=== PATIENT | female | born 1960 | race Caucasian/White ===

== ENCOUNTER 2018-05-30 11:52 | Inpatient (IN) | payer OTHER ==
[~2018-05-30] VITALS: Ht 162.6 cm; Wt 136.1 kg
--- NOTE | ~2018-05-30 | OP ---
[address] [address] OPERATIVE REPORT Name: GENARO LISA Room: [address] IN .#: [id number] Admission: 05/30/18 Attend Phys: Mark Scott MD Discharge: Date of : 60 Report #: [id number] THIS REPORT FOR: //name// CC: [facility] Jeronimo Scott DATE OF SERVICE: 05/30/2018 PREOPERATIVE DIAGNOSES: Right distal ureteral obstructing stone and urinary tract infection, acute kidney injury. POSTOPERATIVE DIAGNOSES: Right distal ureteral obstructing stone and urinary tract infection, acute kidney injury. PROCEDURE: Cystourethroscopy, right retrograde pyelogram and right ureteral stent placement (6-Palauan x 24 cm). SURGEON: Chelsi Chatterjee M.D. ANESTHESIA: General. ESTIMATED BLOOD LOSS: None. COMPLICATIONS: None. SPECIMENS: Urine from right kidney for culture and sensitivity. INDICATION FOR PROCEDURE: The patient is a 58-year-old female who presented with a subjective fever, chills and bilateral flank pain. A CT scan done today revealed a 5-mm right distal obstructing stone as well as some right nonobstructing renal stones. No stone or hydro was found on the left side. Her urinalysis looked suspicious for infection and she had leukocytosis as well as tachycardia. Given her likely infection, it was recommended she undergo urgent stent placement to decompress her right kidney. Her creatinine is also elevated at 2.1. Risks of procedure were discussed including, not limited to infection, bleeding, injury to the urethra, bladder, ureter, need for secondary procedures, stent pain, cardiopulmonary complications. She voiced understanding and wishes to proceed. She also understands she will need a full antibiotic course before we proceed with intervention for her stones. DESCRIPTION OF PROCEDURE: After informed consent was obtained, the patient was taken back to the operating suite and placed supine. After induction of general anesthesia, she was placed in dorsal lithotomy position. Genitalia were prepped and draped in standard fashion. Rigid cystoscopy was performed. She was noted to have a normal urethra and bladder. She did [place] [address] OPERATIVE REPORT Name: GENARO LISA Room: [address] [place] [facility]#: [id number] Admission: 05/30/18 Attend Phys: Mark Scott MD Discharge: Date of : 60 Report #: [id number] her bladder, but this was otherwise unremarkable. Ureteral orifices were orthotopic in position. Retrograde was performed on the right side, which revealed a distal ureteral filling defect with proximal hydroureteronephrosis. This was consistent with the stone. A sensor wire was threaded up into the kidney. The proximal ureter was noted to be mildly tortuous. The 5-Palauan open-ended catheter was used over the wire to thread up into the kidney and wires were removed. A hydronephrotic drip was noted. I aspirated some urine back and this looked just slightly cloudy, but not frankly purulent. However, when the wire was replaced and the 5-Palauan open-ended catheter was removed, a lot of purulent-appearing material effluxed from the right UO. Therefore, a 6-Palauan x 24 cm double-J stent was threaded over the wire. Good curl was seen within the renal pelvis and good curl was seen within the bladder under direct visualization. The bladder was then drained and the scope was removed, procedure was concluded. She was awoken, extubated and taken to recovery. Prior to leaving the OR table, I placed 5 mL of lidocaine jelly per urethra for local anesthesia. She was taken to recovery in satisfactory condition and will be admitted to the floor on antibiotics. Plan will be to await her cultures. Continue antibiotic therapy for a full course and then, she will require ureteroscopy in the future when she has cleared her infection. We will continue to monitor her creatinine levels as well. By: 1704 1717Chelsi Chatterjee MD /jose c
[2018-05-30 11:59] VITALS: BP 167/87
[2018-05-30] MEDS ORDERED: DOXYCYCLINE HYC50 MG PO (12:12)
[2018-05-30] MEDS ORDERED: [UNRECOGNIZED DRUG - OTHER] TOP (12:15)
[2018-05-30] MEDS ORDERED: NUVESSA5 GM VAG (12:17)
[2018-05-30] MEDS ORDERED: NYAMYC15 GM TOP (12:17)
[2018-05-30] MEDS ORDERED: MUPIROCIN1 GM TOP (12:18)
[2018-05-30] MEDS ORDERED: POTASSIUM CIT2500 GM PO (12:19)
[2018-05-30] MEDS ORDERED: NEURONTIN 300300 M1 PO (12:19)
[2018-05-30] MEDS ORDERED: LOPRESSOR50 PO (12:21)
[2018-05-30 12:28] LABS: HEMATOCRIT 34.4 % (37.0-47.0); HEMOGLOBIN 11.1 gm/dL (12.0-15.0); MCH 27.5 pg (26.0-34.0); MCHC 32.3 g/dL (28.0-37.0); MCV 85.2 fL (80.0-100.0); MPV 8.2 fl. (7.2-11.1); NUCLEATED RBCS 0 /100WBC; PLATELET COUNT* 232 thou/uL (150-400); RBC 4.04 mil/uL (4.20-5.00); RDW-CV 16.9 % (10.5-14.5); WBC 13.1 thou/uL (4.0-11.0)
[2018-05-30 12:46] LABS: ALBUMIN 2.6 g/dL (3.4-5.0); ALKALINE PHOSPHATASE 72 U/L (46-116); ANION GAP 10 mmol/L (7-16); BUN 29 mg/dL (7-18); CHLORIDE 102 mmol/L (98-107); CO2 26 mmol/L (21-32); CREATININE 2.1 mg/dL (0.6-1.3); GLUCOSE 225 mg/dL (70-99); LIPASE 88 U/L (73-393); POTASSIUM 4.2 mmol/L (3.5-5.1); SGOT 20 U/L (15-37); SGPT 20 U/L (30-65); SODIUM 138 mmol/L (136-145); TOTAL BILIRUBIN 0.5 mg/dL (<0.1-1.0); TOTAL PROTEIN 7.2 g/dL (6.4-8.2); TROPONIN-I LEVEL <0.06 ng/mL (<0.06)
[2018-05-30 12:58] LABS: ABSOLUTE BASOPHILS 0.1 thou/uL (0.0-0.2); ABSOLUTE LYMPHOCYTES 0.5 thou/uL (0.8-5.3); ABSOLUTE MONOCYTES 0.3 thou/uL (0.0-1.2); ABSOLUTE NEUTROPHILS 12.2 thou/uL (1.6-8.1)
[2018-05-30 12:59] LABS: HYPOCHROMASIA 1+; MICROCYTES 1+; PLATELET ESTIMATE ADEQUATE
[2018-05-30] MEDS ORDERED: LEVEMIR SUBQ (13:00)
[2018-05-30] MEDS ORDERED: ZOLOFT50 MG PO (13:00)
[2018-05-30] MEDS ORDERED: OMEPRAZOLE40 MG PO (13:00)
[2018-05-30] MEDS ORDERED: BD ULTRA-FINE1 EAC2 SUBQ (13:01)
[2018-05-30] MEDS ORDERED: OSTERA TABLET1 EAC1 PO (13:02)
[2018-05-30] MEDS ORDERED: ASPIR 8181 MG PO (13:02)
[2018-05-30] MEDS ORDERED: ZETIA10 MG PO (13:02)
--- NOTE | 2018-05-30 13:37 | EKG ---
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 : 1960 Requested By: Yennifer Leo Order Number: [id number] MD: Wesyl Fulton Measurements Intervals [place] Rate: 127 P: 54 AR: 144 QRS: -14 QRSD: 73 T: 56 QT: 281 QTc: 409 Interpretive Statements Sinus tachycardia Consider anterior infarct Minimal ST depression, lateral leads No previous ECG available for comparison Electronically Signed On 05-30-2018 13:37:35 CDT by Wesly Fulton [email or web address] <ELECTRONICALLY SIGNED> By: Wesly Fulton MD, [facility] 05/30/18 1337 1302 1302 Wesly Fulton MD, FAC /EPI
[2018-05-30 13:59] LABS: URINE BILIRUBIN NEGATIVE (Negative); URINE BLOOD 3+ (Negative); URINE CLARITY CLEAR; URINE COLOR YELLOW; URINE GLUCOSE-RANDOM NEGATIVE (Negative); URINE KETONES NEGATIVE (Negative); URINE LEUKOCYTES-REFLEX 2+ (Negative); URINE NITRITE-REFLEX NEGATIVE (Negative); URINE PROTEIN 2+ (Negative); URINE SPECIFIC GRAVITY 1.015 (1.005-1.030); URINE UROBILINOGEN 0.2 E.U./dl (0.2-1.0)
[2018-05-30 14:07] LABS: SQUAMOUS 4-10 Moderate /LPF (0-3)
[2018-05-30 14:08] LABS: URINE RBC >20 Many /HPF (0-2); URINE WBC-REFLEX >25 Many /HPF (0-5)
[2018-05-30 14:09] LABS: CASTS None Seen /LPF (None Seen); CRYSTALS None Seen /LPF (None Seen); MUCUS None Seen strn/LPF (None Seen)
[2018-05-30 14:39] VITALS: BP 139/68
[2018-05-30 15:30] VITALS: BP 100/50
--- NOTE | 2018-05-30 17:13 | NUR ---
PATIENT ADMITTED AT 1530 FROM ER. UP TO CHAIR WHILE ADMISSION HISTORY BEING DONE. IVF WIDE OPEN FOR SEPSIS, SCHED ABX INFUSING. NO COMPLAINTS OF PAIN. UROLOGY CONSULTED AND WILL TAKE PATIENT TO OR THIS SHIFT. PATIENT DOWN AT 1600 TO OR. WOUND PHOTO TAKEN OF LEFT ARMPIT. VITALS CHARTED. ORIENTED TO CALL LIGHT.
[2018-05-30 18:05] VITALS: BP 104/62
--- NOTE | 2018-05-30 19:31 | NUR ---
PATIENT RETURNED TO FLOOR FROM STENT PLACEMENT. PATIENT DENIES ANY PAIN. PATIENT TOLERATING CLEAR LIQUIDS. PATIENT UP TO VOID PER COMMODE. PATIENT HAS BLOOD TINGED URINE, NO STONE RETRIEVED. PATIENT DENIES ANY NEEDS AT THIS TIME. CALL LIGHT WITHIN REACH. WILL CONTINUE TO MONITOR.
[2018-05-30 20:40] VITALS: BP 107/60
[2018-05-31 00:15] VITALS: BP 116/59
[2018-05-31 03:24] VITALS: BP 132/54
[2018-05-31 03:56] LABS: ABSOLUTE BASOPHILS 0.2 thou/uL (0.0-0.2); ABSOLUTE LYMPHOCYTES 1.3 thou/uL (0.8-5.3); ABSOLUTE MONOCYTES 1.4 thou/uL (0.0-1.2); ABSOLUTE NEUTROPHILS 13.3 thou/uL (1.6-8.1); BASOPHILS 1.1 %; EOSINOPHILS 0.2 %; HEMATOCRIT 31.6 % (37.0-47.0); HEMOGLOBIN 9.9 gm/dL (12.0-15.0); MCH 27.5 pg (26.0-34.0); MCHC 31.3 g/dL (28.0-37.0); MCV 87.9 fL (80.0-100.0); MONOCYTES 8.4 %; MPV 8.4 fl. (7.2-11.1); NUCLEATED RBCS 0 /100WBC; PLATELET COUNT* 219 thou/uL (150-400); POLYS 82.3 %; RBC 3.59 mil/uL (4.20-5.00); RDW-CV 17.5 % (10.5-14.5); WBC 16.2 thou/uL (4.0-11.0)
[2018-05-31 04:11] LABS: CALCIUM 8.4 mg/dL (8.5-10.1); CREATININE 2.1 mg/dL (0.6-1.3); POTASSIUM 4.5 mmol/L (3.5-5.1)
--- NOTE | 2018-05-31 05:56 | NUR ---
PT SLEPT MOST OF SHIFT. ASSESSMENT DOCUMENTED. MEDS GIVEN PER E-MAR. IV PATENT, FLUIDS INFUSING. NORCO GIVEN 1X FOR BACK PAIN WITH RELIEF. CAPNO INPLACE. URINE STRAINED THIS SHIFT. NO REPORTS OF NAUSEA THIS SHIFT. WILL CONTINUE WITH PLAN OF CARE.
[2018-05-31 08:00] VITALS: BP 126/54
[2018-05-31 12:00] VITALS: BP 155/72
--- NOTE | 2018-05-31 15:48 | NUR ---
SW met with pt to complete initial assessment, introduce self, and SW role. Pt alert, oriented. Pt lives at home with her in a duplex that is all one level. Pt has a quad cane. Pt concerned with whether or not she will need oxygen at night at dc. SW discussed this with pt, pt nurse and Dr Scott about whether or not there would be a need for overnight oximetry prior to pt dc to determine if pt would qualify or not. SW to continue to follow to assist with safe dc planning.
[2018-05-31 16:17] VITALS: BP 155/66
--- NOTE | 2018-05-31 16:25 | NUR ---
SHIFT NOTE - PT OFF CAPNO THIS AM. REMAINS ON O2. FAMILY PRESENT AT BEDSIDE. UP IN CHAIR. UP TO BR WITH STANDBY ASSIST. WILL CONTINUE TO MONITOR.
[2018-05-31 19:40] VITALS: BP 134/69
[2018-06-01] VITALS: BP 172/74
[2018-06-01 02:06] LABS: GLYCOHEMOGLOBIN (HGB A1C) 7.2 % (4.8-5.6)
[2018-06-01 04:00] VITALS: BP 106/54
[2018-06-01 05:04] LABS: ABSOLUTE EOSINOPHILS 0.1 thou/uL (0.0-0.7); ABSOLUTE LYMPHOCYTES 0.9 thou/uL (0.8-5.3); ABSOLUTE NEUTROPHILS 8.4 thou/uL (1.6-8.1); BASOPHILS 0.5 %; EOSINOPHILS 1.2 %; HEMATOCRIT 28.7 % (37.0-47.0); HEMOGLOBIN 9.1 gm/dL (12.0-15.0); MCH 27.6 pg (26.0-34.0); MCHC 31.6 g/dL (28.0-37.0); MCV 87.2 fL (80.0-100.0); MONOCYTES 9.1 %; MPV 8.9 fl. (7.2-11.1); NUCLEATED RBCS 0 /100WBC; PLATELET COUNT* 208 thou/uL (150-400); POLYS 80.2 %; RBC 3.29 mil/uL (4.20-5.00); RDW-CV 17.5 % (10.5-14.5); WBC 10.5 thou/uL (4.0-11.0)
--- NOTE | 2018-06-01 05:21 | NUR ---
PT A&O X4. SAO2 95L ON 2L NC. NEW IV STARTED ON RFA 22G. PT RECEIVED SCHEDULED MEDS, IV ABX INFUSED. PT RECEIVED ZOFRAN @ 2203 FOR NAUSEA FEELING. PT RECEIVED 40 UNITS GLARGINE INSULINE AND 8 UNITS SLIDING SCALE OFR A BLOOD GLUCOSE OF 178. PT COMPLAINED OF JEAN AT MEDS ADMINISTRATION WITH A RATING OF TIME. I ASKED IF PT WOULD TAKE TYLENOL, BUT SHE WANTED TO WAIT FOR HER NIGHT MEDS TO KICK IN BECAUSE SHE THOUGHT IT WOULD HELP. ON REASSESSMENT, RELIEF NOTED PT WAS ASLEEP. URINE STRAINED, NO STONE NOTED. PT UP TO CHAIR THIS EARLY AM, SLEEPING. INFECTIOUS DISEASE. CALL LIGHT WITHIN REACH. PT SLEPT FOR MOST OF SHIFT.
[2018-06-01 05:36] LABS: CALCIUM 7.9 mg/dL (8.5-10.1); CREATININE 1.8 mg/dL (0.6-1.3); POTASSIUM 4.6 mmol/L (3.5-5.1)
--- NOTE | 2018-06-01 06:27 | NUR ---
I HAVE REVIEWED CHARTING COMPLETED BY DARIUSZ GRAYSON RN AND CONCUR WITH HER DOCUMENTATION.
[2018-06-01 08:00] VITALS: BP 140/71
[2018-06-01 16:31] VITALS: BP 121/50
--- NOTE | 2018-06-01 16:55 | NUR ---
SHIFT NOTE - FAMILY AT BEDSIDE FOR MOST OF THIS SHIFT. UP IN CHAIR FOR PART OF SHIFT. URINE STRAINING. WILL CONTINUE TO MONITOR.
--- NOTE | 2018-06-02 05:30 | NUR ---
PATIENT SLEPT WELL DURING THIS SHIFT. PT WITH FLUIDS/ANTIBIOTICS INFUSING PER DR ORDER. PT UP TO BATHROOM WITH STEADY GAIT. PT VOIDS DARK YELLOW URINE. NO STONES RETRIEVED. PT HAD ONE BOWEL MOVEMENT DURING THE NIGHT. PT DENIES PAIN. PT WITH BLOOD SUGAR AT 2100 OF 159; LANTUS 40 UNITS AND LISPRO 8 UNITS GIVEN. PT ON ROOM AIR. FREQUENTLY USED ITEMS AND CALL LIGHT WITHIN REACH. SIDERAILS UPX2. WILL CONTINUE TO MONITOR.
[2018-06-02 08:00] VITALS: BP 146/71
--- NOTE | 2018-06-02 16:34 | NUR ---
SHIFT NOTE - PT UP IN CHAIR FOR PART OF THIS SHIFT. FAMILY AT BEDSIDE FOR PART OF THIS SHIFT. ABLE TO AMBULATE TO BR WITH STANDBY ASSIST. WILL CONTINUE TO MONITOR.
[2018-06-02 16:44] VITALS: BP 137/58
[2018-06-02 16:50] LABS: CALCIUM 8.4 mg/dL (8.5-10.1); CREATININE 1.7 mg/dL (0.6-1.3); POTASSIUM 4.4 mmol/L (3.5-5.1)
--- NOTE | 2018-06-02 17:25 | CON ---
[address] [address] CONSULTATION Name: GENARO LISA Room: [address] IN ..#: [id number] Admission: 05/30/18 Attend Phys: Mark Scott MD Discharge: Date of : 60 Report #: [id number] THIS REPORT FOR: //name// CC: Jeronimo Scott DATE OF SERVICE: 06/01/2018 CONSULTATION: Infectious diseases. HISTORY OF PRESENT ILLNESS: The patient is a 58-year-old white female admitted to [facility] on 05/30/2018 because of another kidney stone. The patient had right-sided flank pain associated with fevers, chills, and malaise. She has a history of kidney stones and was very familiar with these symptoms. Workup demonstrated a 5 mm obstructing stone on the right as well as nonobstructing stones on the left. The patient underwent cystoscopy and placement of an ureteral stent. The urologist noted that there was significant purulence in the ureter when the stone was bypassed. She was started on antibiotic therapy. Infectious Disease consultation was requested to assist with review of the antibiotics. PAST MEDICAL HISTORY: Significant for diabetes. PAST SURGICAL HISTORY: Includes appendectomy, cholecystectomy, section as well as previous stents. ALLERGIES: The patient has a history of PENICILLIN allergy. FAMILY HISTORY: Noncontributory. SOCIAL HISTORY: The patient is . She lives at home with her . Her children are grown. She works in an office job. She does not use tobacco, alcohol, nor drugs. REVIEW OF SYSTEMS: GENERAL: Positive for fevers, chills. ENT: No headache, sinus congestion, sore throat, trouble swallowing. CHEST: No cough, chest pain, shortness of breath. GASTROINTESTINAL: The patient did have nausea, but no vomiting. Her bowels have been fine. She has had the pain in her abdomen and right flank. EXTREMITIES: No complaints. PHYSICAL EXAMINATION: GENERAL: The patient was somnolent, but arousable, was able to answer questions. She is appropriate, not in any distress. VITAL SIGNS: Show maximum measured temperature in the hospital 99.8 [place] [address] CONSULTATION Name: GENARO LISA Room: [address]#: [id number] Admission: 05/30/18 Attend Phys: Mark Scott MD Discharge: Date of : 60 Report #: [id number] 97.6 at the time of my examination. SKIN: Showed no rash, lesion, or exanthem. ENT: Negative. NECK: Quite thick. HEART: Sounds S1, S2. LUNGS: Clear. Belly was obese, soft, not tender. Bowel sounds were present. The flanks were not particularly tender at the time of my examination. EXTREMITIES: Unremarkable. LABORATORY DATA: The white count was 16,000 on admission, is down to 10.5; hemoglobin 9.1; and platelet 208,000. Electrolytes are normal. BUN 25, creatinine has gone from 2.1-1.8, glucose 149. Hemoglobin A1c is 7.3. The urinalysis showed many white cells and many red cells. Cultures of blood and urine as well as surgical cultures are pending. Imaging studies showed a 5 mm obstructing stone. IMPRESSION: Nephrolithiasis with obstruction and infection. PLAN: The patient has clearly improved from the infection perspective with stenting and IV antibiotics with cefepime. One can anticipate gram-negative organisms causing urinary tract infection in this setting. The patient was on antibiotics at home, so pseudomonas or other resistant melissa would be very possible. I would suggest we continue the cefepime until we have results from the blood and urine cultures. We can adjust the antibiotics then. The patient may be able to transition to oral antibiotics or might require further parenteral therapy, particularly if the blood cultures are positive. For now, we will continue the cefepime and supportive therapy. <ELECTRONICALLY SIGNED> By: Shalom Jason MD 06/02/18 1725 1137 [id number] Jason MD /nt
[2018-06-03] VITALS: BP 166/83
[2018-06-03 08:25] VITALS: BP 178/73
--- NOTE | 2018-06-03 14:00 | NUR ---
PATIENT STATED UNABLE TO TAKE CIPRO, DR LAMBERT SONI. NEW ORDERS RECEIVED FROM BACTRIM SS. PATIENT INFORMED. WILL CONTINUE WITH PLAN OF CARE.
[2018-06-03] MEDS ORDERED: BACTRIM DS TAB1 EACH PO (14:54)
[2018-06-03] MEDS ORDERED: HYDROCODONE-AP1 EAC6 PO (14:55)
[2018-06-03 15:06] VITALS: BP 178/73
--- NOTE | 2018-06-03 16:56 | NUR ---
PATIENT'S IV REMOVED AT THIS TIME. GIVEN ONE TIME DOSE OF MAGNESIUM ORDERED. PATIENT STATES HEADACHE IS BETTER AFTER RECEIVING HYDROCODONE. PATIENT GIVEN DISCHARGE INSTRUCTIONS AND VERBALIZED UNDERSTANDING. PATIENT'S PRESCRIPTION FOR BACTRIM CALLED INTO PATIENT'S PHARMACY. PATIENT GIVEN SCRIPT FOR HYDROCODONE. PATIENT DISCHARGED VIA WHEELCHAIR WITH ALL BELONGINGS. ESCORTED OFF NURSING UNIT WITH NURSING STAFF.
== END 2018-06-03 17:00 | disposition home or self-care (01) | DRG 853 ==
LOC: M.ERS 11:52 → M.TBA-ER 14:04 → M.3W 14:49
PROVIDERS: Internal Medicine; Physician Assistant; ADMIT Family Medicine
DX: A41.9 Sepsis, unspecified organism (principal); N17.0 Acute kidney failure with tubular necrosis; N13.6 Pyonephrosis; N13.8 Other obstructive and reflux uropathy; Z68.43 Body mass index [BMI] 50.0-59.9, adult; E11.9 Type 2 diabetes mellitus without complications; E66.01 Morbid (severe) obesity due to excess calories; G44.209 Tension-type headache, unspecified, not intractable; B96.20 Unspecified Escherichia coli [E. coli] as the cause of diseases classified elsewhere; N18.9 Chronic kidney disease, unspecified; Z90.49 Acquired absence of other specified parts of digestive tract; Z98.891 History of uterine scar from previous surgery; Z79.82 Long term (current) use of aspirin; Z79.899 Other long term (current) drug therapy; Z88.0 Allergy status to penicillin; Z88.8 Allergy status to other drugs, medicaments and biological substances

== ENCOUNTER 2020-07-20 10:35 | Inpatient (IN) | payer OTHER ==
[~2020-07-20] VITALS: Ht 162.6 cm; Wt 150.2 kg
[~2020-07-20 10:35] MED LIST: ASPIR 8181 MG PO; BACTRIM DS TAB1 EACH PO; BD ULTRA-FINE1 EAC2 SUBQ; DOXYCYCLINE HYC50 MG PO; HYDROCODONE-AP1 EAC6 PO; LEVEMIR SUBQ; LOPRESSOR50 PO; MUPIROCIN1 GM TOP; NEURONTIN 300300 M1 PO; NUVESSA5 GM VAG; NYAMYC15 GM TOP; OMEPRAZOLE40 MG PO; OSTERA TABLET1 EAC1 PO; POTASSIUM CIT2500 GM PO; ZETIA10 MG PO; ZOLOFT50 MG PO; [UNRECOGNIZED DRUG - OTHER] TOP
[2020-07-20 10:44] VITALS: BP 165/76
[2020-07-20 11:23] LABS: ABSOLUTE EOSINOPHILS 0.2 thou/uL (0.0-0.7); ABSOLUTE LYMPHOCYTES 1.8 thou/uL (0.8-5.3); ABSOLUTE MONOCYTES 0.6 thou/uL (0.0-1.2); ABSOLUTE NEUTROPHILS 9.1 thou/uL (1.6-8.1); BASOPHILS 0.2 %; EOSINOPHILS 1.9 %; HEMATOCRIT 36.3 % (37.0-47.0); HEMOGLOBIN 11.6 gm/dL (12.0-15.0); LYMPHOCYTES 15.1 %; MCH 29.9 pg (26.0-34.0); MCV 93.6 fL (80.0-100.0); MONOCYTES 5.1 %; MPV 7.7 fl. (7.2-11.1); NUCLEATED RBCS 0 /100WBC; PLATELET COUNT* 256 thou/uL (150-400); POLYS 77.7 %; RBC 3.88 mil/uL (4.20-5.00); RDW-CV 17.7 % (10.5-14.5); WBC 11.7 thou/uL (4.0-11.0)
[2020-07-20 11:35] LABS: BE 5.6 mmol/L (-2 to +3); PCO2 46.4 mmHg (35.0-45.0); pH 7.437 (7.340-7.450)
[2020-07-20 11:36] LABS: CALCIUM 8.5 mg/dL (8.5-10.1); CREATININE 1.2 mg/dL (0.6-1.3); POTASSIUM 3.9 mmol/L (3.5-5.1)
[2020-07-20 11:39] LABS: PO2 48.4 mmHg (75.0-100.0)
[2020-07-20 11:47] LABS: ALBUMIN 3.1 g/dL (3.4-5.0); APTT 23.5 Seconds (25.0-31.3); PROTIME 10.7 Seconds (9.20-11.50); TOTAL BILIRUBIN 0.6 mg/dL (<0.1-1.0); TOTAL PROTEIN 7.8 g/dL (6.4-8.2)
[2020-07-20 14:15] VITALS: BP 152/78
[2020-07-20 14:35] VITALS: BP 172/74
[2020-07-20 16:00] VITALS: BP 197/78
--- NOTE | 2020-07-20 16:13 | EKG ---
[place] [address] ELECTROCARDIOGRAM REPORT Name: GENARO LISA Room: [address] IN ..#: [id number] Admission: 07/20/20 Attend Phys: Les Hernandes Discharge: Date of : 60 Date of Service: 07/20/20 1052 Report #: [id number] THIS REPORT FOR: //name// [facility] ED Test Date: 2020-07-20 Test Time: 10:52:04 Pat Name: GENARO LISA Department: Room: [facility] Gender: F Immigration Specialist: FRANKIE : 1960 Requested By: Mikki Garcia Order Number: [id number] MD: Polo Hendrix Measurements Intervals [place] Rate: 83 P: 58 MO: 133 QRS: -1 QRSD: 78 T: 45 QT: 379 QTc: 446 Interpretive Statements Sinus rhythm Borderline low voltage, extremity leads Compared to ECG 05/30/2018 13:02:03 Sinus tachycardia no longer present Myocardial infarct finding no longer present ST (T wave) deviation no longer present Electronically Signed On 07-20-2020 16:13:37 CDT by Polo Hendrix [email or web address] <ELECTRONICALLY SIGNED> By: Polo Hendrix MD, [facility] 07/20/20 1613 1052 1052 Polo Hendrix MD, [facility] /EPI
--- NOTE | 2020-07-20 17:26 | 2DMMODE ---
[place] [address] 2 D/M-MODE ECHOCARDIOGRAM Name: SLOANGENARO L Room: [address] IN [facility]#: [id number] Admission: 07/20/20 Attend Phys: Les Hernandes Discharge: Date of : 60 Date of Service: 07/20/20 1726 Report #: [id number] THIS REPORT FOR: cc: Jeronimo Costello Bradley Dean DO Blick, David R. MD [facility] ~ APPROVED REPORT Study performed: 07/20/2020 15:57:32 EXAM: Comprehensive 2D, Doppler, and color-flow Echocardiogram Patient Location: In-Patient Room #: [facility] Status: routine BSA: 2.36 HR: 82 bpm BP: 172/74 mmHg Rhythm: NSR Other Information Study Quality: Good Indications Dyspnea 2D Dimensions IVSd: 8.65 (7-11mm) LVOT Diam: 18.97 (18-24mm) LVDd: 47.43 mm PWd: 10.06 (7-11mm) Ascending Ao: 31.44 (22-36mm) LVDs: 24.71 (25-40mm) Aortic Root: 29.75 mm Volumes Left Atrial Volume (Systole) LA ESV Index: 16.80 mL/m2 Aortic Valve AoV Peak Haris.: 2.24 m/s AO Peak Gr.: 20.01 mmHg LVOT Max P.01 mmHg AO Mean Gr.: 10.18 mmHg LVOT Mean P.22 mmHg LVOT Max V: 1.73 m/s AO V2 VTI: 43.61 cm LVOT Mean V: 1.03 m/s MILLER (VTI): 2.30 cm2 LVOT V1 VTI: 35.48 [place] [address] 2 D/M-MODE ECHOCARDIOGRAM Name: GENARO LISA Room: [address] IN [facility]#: [id number] Admission: 07/20/20 Attend Phys: Les Hernandes Discharge: Date of : 60 Date of Service: 07/20/20 1726 Report #: [id number] Mitral Valve E/A Ratio: 1.20 MV Decel. Time: 196.83 ms MV E Max Haris.: 1.23 m/s MV PHT: 57.08 ms MVA (PHT): 3.85 cm2 TDI E/Lateral E': 10.25 E/Medial E': 9.46 Medial E' Haris.: 0.13 m/s Lateral E' Haris.: 0.12 m/s Pulmonary Valve PV Peak Haris.: 1.22 m/s PV Peak Gr.: 5.98 mmHg Left Ventricle The left ventricle is normal size. There is normal LV segmental wall motion. There is normal left ventricular wall thickness. Left ventricular systolic function is normal. The left ventricular ejection fraction is within the normal range. LVEF is 55-60%. The left ventricular diastolic function is normal. Right Ventricle The right ventricle is normal size. The right ventricular systolic function is normal. Atria The left atrium size is normal. The right atrium size is normal. Aortic Valve The aortic valve is normal in structure. No aortic regurgitation is present. There is no aortic valvular stenosis. Mitral Valve The mitral valve is normal in structure. There is no mitral valve regurgitation noted. No evidence of mitral valve stenosis. Tricuspid Valve The tricuspid valve is normal in structure. Trace tricuspid regurgitation. Unable to assess PA pressure. Pulmonic Valve The pulmonary valve is normal in structure. There is no pulmonic [place] [address] 2 D/M-MODE ECHOCARDIOGRAM Name: GENARO LISA Maria Antonia Room: [address]#: [id number] Admission: 07/20/20 Attend Phys: Les Hernandes Discharge: Date of : 60 Date of Service: 07/20/20 1726 Report #: [id number] Great Vessels The aortic root is normal in size. IVC is normal in size and collapses >50% with inspiration. Pericardium There is no pericardial effusion. <Conclusion> Left ventricular systolic function is normal. The left ventricular ejection fraction is within the normal range. <ELECTRONICALLY SIGNED> By: Polo Hendrix MD, [facility] 07/20/201725 25 25 Polo Hendrix MD, FAC /INF
[2020-07-20 19:30] VITALS: BP 110/59
[2020-07-20 23:37] VITALS: BP 172/81
[2020-07-21 04:05] VITALS: BP 146/80
[2020-07-21 04:52] LABS: HEMATOCRIT 36.8 % (37.0-47.0); HEMOGLOBIN 11.7 gm/dL (12.0-15.0); MCH 29.5 pg (26.0-34.0); MCHC 31.7 g/dL (28.0-37.0); MPV 8.2 fl. (7.2-11.1); NUCLEATED RBCS 0 /100WBC; PLATELET COUNT* 256 thou/uL (150-400); RBC 3.96 mil/uL (4.20-5.00); RDW-CV 17.8 % (10.5-14.5); WBC 11.4 thou/uL (4.0-11.0)
[2020-07-21 05:00] LABS: ALBUMIN 3.2 g/dL (3.4-5.0); CALCIUM 8.7 mg/dL (8.5-10.1); CREATININE 1.2 mg/dL (0.6-1.3); POTASSIUM 4.5 mmol/L (3.5-5.1); TOTAL BILIRUBIN 0.4 mg/dL (<0.1-1.0)
[2020-07-21 06:26] LABS: ABSOLUTE LYMPHOCYTES 0.9 thou/uL (0.8-5.3); ABSOLUTE MONOCYTES 0.1 thou/uL (0.0-1.2); ABSOLUTE NEUTROPHILS 10.4 thou/uL (1.6-8.1); ATYPICAL LYMPHS 2 %; METAMYELOCYTES 3 %; MYELOCYTES 1 %; PLATELET ESTIMATE ADEQUATE
[2020-07-21 08:00] VITALS: BP 164/68
[2020-07-21 11:42] VITALS: BP 136/69
[2020-07-21 16:58] VITALS: BP 154/77
[2020-07-21 20:00] VITALS: BP 134/53
[2020-07-22 00:05] VITALS: BP 1149/71; BP 126/62; BP 149/71
[2020-07-22 04:24] LABS: HEMATOCRIT 38.1 % (37.0-47.0); HEMOGLOBIN 12.1 gm/dL (12.0-15.0); MCH 29.7 pg (26.0-34.0); MCHC 31.8 g/dL (28.0-37.0); MCV 93.3 fL (80.0-100.0); RBC 4.09 mil/uL (4.20-5.00); RDW-CV 17.8 % (10.5-14.5); WBC 16.6 thou/uL (4.0-11.0)
[2020-07-22 04:29] LABS: CALCIUM 8.8 mg/dL (8.5-10.1); CREATININE 1.1 mg/dL (0.6-1.3); POTASSIUM 4.7 mmol/L (3.5-5.1)
[2020-07-22 08:00] VITALS: BP 158/85
[2020-07-22 11:06] VITALS: BP 158/85
== END 2020-07-22 11:57 | disposition home or self-care (01) | DRG 871 ==
LOC: M.ERS 10:35 → M.TBA-ER 11:55 → M.2W 11:55
PROVIDERS: Family Medicine; Nurse Practitioner Family; ADMIT Internal Medicine; ATTEND Internal Medicine
DX: A41.9 Sepsis, unspecified organism (principal); J96.01 Acute respiratory failure with hypoxia; J96.02 Acute respiratory failure with hypercapnia; J15.6 Pneumonia due to other Gram-negative bacteria; K50.90 Crohn's disease, unspecified, without complications; I10 Essential (primary) hypertension; E78.5 Hyperlipidemia, unspecified; E11.9 Type 2 diabetes mellitus without complications; Z20.822 Contact with and (suspected) exposure to COVID-19; Z90.49 Acquired absence of other specified parts of digestive tract; Z79.82 Long term (current) use of aspirin; Z79.899 Other long term (current) drug therapy; Z88.1 Allergy status to other antibiotic agents; Z88.0 Allergy status to penicillin; Z88.8 Allergy status to other drugs, medicaments and biological substances